=== PATIENT | male | born 1955 | race Caucasian/White ===

== ENCOUNTER 2016-12-08 17:09 | Emergency (ER) | payer OTHER ==
[~2016-12-08 17:09] MED LIST: ABIL5TAB PO; AZIT600T PO; COUM6TAB PO; DEPA500T2 PO; DOXY150C PO; PRIL40CA PO; STRA100C PO
[2016-12-08] MEDS ORDERED: MORPHINE 4 MG/ML 1ML SYRINGE As Ordered ONE (17:40)
[2016-12-08] MEDS ORDERED: ONDANSETRON 4MG/2ML VIAL (J2405) As Ordered ONE (17:40)
[2016-12-08] MEDS ORDERED: ADACEL/BOOSTRIX VACCINE (DIPHTH/PERTUSS/ACELL/TETANUS)0.5ML SYR (90715) As Ordered ONE (17:41)
[2016-12-08] MEDS ORDERED: ceFAZolin 1GM INJ (J0690) As Ordered ONE (17:48)
[2016-12-08 17:51] LABS: BASO % 0.3 % (0.0-1.0); EOS # 0.1 K/mm3 (0.0-0.50); LARGE UNSTAINED CELL # 0.1 K/mm3 (0.0-0.4); LYMPH # 1.9 K/mm3 (1.5-4.5); LYMPH % 20.6 % (24.0-44.0); MEAN CORPUSCULAR HEMOGLOBIN 31.4 pg (27.0-33.0); MEAN CORPUSCULAR HGB CONC 32.8 g/dl (32.0-36.5); MEAN CORPUSCULAR VOLUME 95.8 fl (80.0-96.0); MONO # 0.7 K/mm3 (0.0-0.8); NEUTROPHILS # 6.1 K/mm3 (1.8-7.7); PLATELET COUNT, AUTOMATED 242 k/mm3 (150-450); WHITE BLOOD COUNT 8.8 K/mm3 (4.0-10.0)
[2016-12-08 18:06] LABS: INR 1.67
[2016-12-08 18:14] LABS: ANION GAP 8 MEQ/L (8-16); BLOOD UREA NITROGEN 16 MG/DL (7-18); CALCIUM LEVEL 9.1 MG/DL (8.8-10.2); CARBON DIOXIDE LEVEL 29 MEQ/L (21-32); CHLORIDE LEVEL 106 MEQ/L (98-107); CREATININE FOR GFR 0.91 MG/DL (0.70-1.30); GLOMERULAR FILTRATION RATE > 60.0 (>49); GLUCOSE, FASTING 81 MG/DL (80-110); POTASSIUM SERUM 4.2 MEQ/L (3.5-5.1); SODIUM LEVEL 143 MEQ/L (136-145)
[2016-12-08] MEDS ORDERED: MORPHINE 2 MG/ML 1ML SYRINGE As Ordered ONE (18:31)
[2016-12-08] MEDS ORDERED: OXYCODONE/APAP 5MG/325MG(BULK) 1 TAB TAB As Ordered ONE (18:49)
--- NOTE | 2016-12-08 19:21 | EDDOCDS ---
Physician Documentation [facility] Name: Cipriano Rodrigez Age: 61 yrs Sex: Male : 1955 Arrival Date: 12/08/2016 Time: 17:09 Bed 10 Private MD: Other - Complete Info On Cds Disposition: 12/08/16 18:39 Discharged to Home/Self Care. 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 - Condition is Stable. - Prescriptions for Keflex 500 mg Oral Capsule - take 1 capsule by ORAL route every 8 hours for 10 days; 30 capsule. Percocet 5- 325 mg Oral Tablet - take 1 tablet by ORAL route every 6 hours As needed MDD: 4 tabs; 20 tablet. - Medication Reconciliation, Local Pharmacy Hours form. - Follow up: Orthopaedics, [facility]; When: Tomorrow. - Problem is new. - Symptoms are unchanged. - Notes: please call ortho office in morning. Dr. Chavez was involved in your care and arranged for you to be seen tomorrow. if any concerns arise call [phone] and ask for me tomorrow - Dr Kim. Return if worsening symptoms Historical: - Allergies: no known allergies; - Home Meds: 1. Coumadin friday 6 mg, friday 2 mg, friday 6 mg, friday 2mg, ?, friday 2mg, friday? Oral tab once daily (Last dose: 12/08/2016) 2. Depakote 500 mg Oral TbEC 3 tabs once daily 3. Omeprazole Oral 2 times per day 4. Iron CR Oral with meals 5. Synthroid Oral Unknown once daily - PMHx: Hypothyroidism; DVT; Seizures; TBI; - PSHx: Appendectomy; Tonsillectomy; - Social history: Smoking status: Patient uses tobacco products, current every day smoker. No barriers to communication noted, The patient speaks fluent Guinean, Speaks appropriately for age. - Family history: Not pertinent. - : The pt / caregiver states he / she is on anticoagulants: coumadin. Home medication list is obtained from the patient. - Exposure Risk Screening:: None identified. Vital Signs: 12/08 17:13 BP 143 / 85 (auto/); ead 17:14 Pulse 74 MON; Pulse Ox 99% ; ead 17:15 BP 143 / 85; Pulse 77; Resp 18; Temp 98.7(TE); Pulse Ox 99% on R/A; Weight 79.38 kg / kc3 175 lbs; Height 5 ft. 6 in. (167.64 cm); 18:12 BP 146 / 90 (auto/); ead 18:12 Pulse 74 MON; Resp 16; Pulse Ox 95% on R/A; ead 18:57 BP 138 / 88; Pulse 72 MON; Resp 16; Temp 98.7; Pulse Ox 95% on R/A; Pain 5/10; ead 17:15 Body Mass Index 28.25 (79.38 kg, 167.64 cm) kc3 MDM: 17:29 Tetanus- Diptheria-Acellular Pertussis 0.5 ml IM once; Routine booster 10-64yrs, >64 ml with child contact [employer] ordered. 17:29 IV Saline Lock ordered. ml 17:30 Ondansetron 4 mg IVP once ordered. ml 17:30 morphine 4 mg IVP once ordered. ml 17:31 CBC with Diff Ordered. EDMS 17:31 MED Profile Ordered. EDMS 17:31 PT/INR Ordered. EDMS 17:31 PTT Ordered. EDMS 17:31 Hand, Complete Ordered. EDMS 17:38 ceFAZolin 1 grams IVPB once over 30 mins; dilute in 50mL of NS or D5W ordered. ml 18:31 morphine 2 mg IVP once ordered. ml 18:31 oxyCODONE-acetaminophen 4 pack 5 mg-325 mg 1 packets PO once; Dispense with pt, take as ml per instruction on package ordered. 18:32 CBC with Diff Reviewed. ml 18:32 PT/INR Reviewed. ml 18:32 MED Profile Reviewed. ml 18:32 PTT Reviewed. ml 18:40 Misc. Nursing Order ordered. ml 19:16 Financial registration complete. 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 Lot #: [id number]. } Route: IM; Site: left deltoid; 18:02 Drug: Ondansetron 4 mg [ondansetron HCl 2 mg/mL intravenous solution (2 mL)] Route: kc3 IVP; Site: left antecubital; 18:02 Drug: morphine 4 mg [morphine 4 mg/mL intravenous cartridge (1 mL)] Route: IVP; Site: kc3 left antecubital; 18:35 Drug: morphine 2 mg [morphine 2 mg/mL intravenous cartridge (1 mL)] Route: IVP; Site: ead left antecubital; 18:59 Follow up: Response: Confirmed pt not driving.; No Adverse Reaction; Pain is decreased ead 18:59 Drug: oxyCODONE-acetaminophen 4 pack 1 packets [oxycodone-acetaminophen 5 mg-325 mg ead tablet (1 tabs)] {Co-Signature: kc3 (Ernestina Hernandez RN).} Route: PO; Signatures: Dispatcher [employer] Bola Dietrich MD MD ml Olin, Zoeann zo Dunaway, EmilyRN RN Gina Cummings RN RN tm5 Ernestina Hernandez RN kc3 Ernestina Hernandez RN kc3 MTDD
--- NOTE | 2016-12-08 19:21 | EDDOCDS ---
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 pt on Coumadin. bleeding controlled per pt on EMS arrival. pt denies pain. Adult Sepsis Screening: The patient does not have new or worsening altered mentation. Patient's respiratory rate is less than 22. Systolic blood pressure is greater than 100. Patient has a qSOFA score of 0- Negative Sepsis Screen. Suicide/Homicide risk assessment- the patient denies having any suicidal and/or homicidal ideations and does not present with any other emotional, behavioral or mental health complaints. Status: Patient is not a customer service analyst or dependent. Transition of care: patient was not received from another setting of care. 17:11 Acuity: MACARIO Level 3 ead 17:11 Method Of Arrival: Ambulance ead Triage Assessment: 17:19 General: Appears in no apparent distress, comfortable, Behavior is appropriate for age, ead cooperative. HIV screening NA for this visit Offered previously. Neurological: No deficits noted. Derm: Skin is pink, warm & dry. pt has dressing in place to right hand. Musculoskeletal: Reports pain in right hand. Historical: - Allergies: no known allergies; - Home Meds: 1. Coumadin friday 6 mg, friday 2 mg, friday 6 mg, friday 2mg, ?, friday 2mg, friday? Oral tab once daily (Last dose: 12/08/2016) 2. Depakote 500 mg Oral TbEC 3 tabs once daily 3. Omeprazole Oral 2 times per day 4. Iron CR Oral with meals 5. Synthroid Oral Unknown once daily - PMHx: Hypothyroidism; DVT; Seizures; TBI; - PSHx: Appendectomy; Tonsillectomy; - Social history: Smoking status: Patient uses tobacco products, current every day smoker. No barriers to communication noted, The patient speaks fluent Sinhala, Speaks appropriately for age. - Family history: Not pertinent. - : The pt / caregiver states he / she is on anticoagulants: coumadin. Home medication list is obtained from the patient. - Exposure Risk Screening:: None identified. Screenin:21 Screening information is obtained from the patient. Fall risk: No risks identified. ead Assistance ADL's: requires no assistance with activities of daily living. Abuse/DV Screen: The patient / caregiver reports he/she is: not in a situation that causes fear, pain or injury. Nutritional screening: No deficits noted. Advance Directives: Currently, there is no health care proxy. There is no active DNR order. There is no living will. There is no Power of Causticiser. home support is adequate. Assessment: 18:11 General: Appears in no apparent distress, Behavior is appropriate for age, cooperative. ead Neurological: No deficits noted. Respiratory: Airway is patent Respiratory effort is even, unlabored. Derm: fingertip amputation to right 3rd and 4th finger. bleeding controlled. Musculoskeletal: No deformity noted Reports pain in right hand. 19:01 General: Appears in no apparent distress, Behavior is cooperative. Neurological: Level ead of Consciousness is awake, alert, obeys commands, Oriented to person, place, time. Respiratory: No deficits noted. Derm: Skin is pink, warm & dry. dressing in place per Dr. Kim. Vital Signs: 17:13 BP 143 / 85 (auto/); ead 17:14 Pulse 74 MON; Pulse Ox 99% ; ead 17:15 BP 143 / 85; Pulse 77; Resp 18; Temp 98.7(TE); Pulse Ox 99% on R/A; Weight 79.38 kg; kc3 Height 5 ft. 6 in. (167.64 cm); 18:12 BP 146 / 90 (auto/); ead 18:12 Pulse 74 MON; Resp 16; Pulse Ox 95% on R/A; ead 18:57 BP 138 / 88; Pulse 72 MON; Resp 16; Temp 98.7; Pulse Ox 95% on R/A; Pain 5/10; ead 17:15 Body Mass Index 28.25 (79.38 kg, 167.64 cm) kc3 Vitals: 17:09 Log In Time N/A - ambulance arrival. ead ED Course: 17:10 Patient visited by Fatuma Martinez. mt4 17:10 Erin ThomasRN is Primary Nurse. mt4 17:10 Other - Complete Info On Cds is Private Physician. mt4 17:10 Patient moved to Waiting mt4 17:10 Patient moved to 10 mt4 17:14 Triage Initiated ead 17:21 Bola Nagel MD is Attending Physician. ml 17:21 Patient visited by Bola Nagel MD. ml 17:21 The patient / caregiver is instructed regarding the plan of care and ED course. ead 17:40 Inserted saline lock: 20 gauge in left antecubital area and blood collected. The ead patient tolerated the procedure well. 17:43 Patient visited by Erin Thomas RN. ead 17:43 PTT Sent. ead 17:43 PT/INR Sent. ead 17:43 MED Profile Sent. ead 17:43 CBC with Diff Sent. ead 17:56 Patient visited by Erin Thomas RN. ead 18:32 Patient visited by Erin Thomas RN. ead 18[facility] ml 18:59 Discontinued lock intact, bleeding controlled, pressure dressing applied, No ead redness/swelling at site. No procedures done that require assistance. 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 Lot #: [id number]. } Route: IM; Site: left deltoid; 18:02 Drug: Ondansetron 4 mg [ondansetron HCl 2 mg/mL intravenous solution (2 mL)] Route: kc3 IVP; Site: left antecubital; 18:02 Drug: morphine 4 mg [morphine 4 mg/mL intravenous cartridge (1 mL)] Route: IVP; Site: kc3 left antecubital; 18:35 Drug: morphine 2 mg [morphine 2 mg/mL intravenous cartridge (1 mL)] Route: IVP; Site: ead left antecubital; 18:59 Follow up: Response: Confirmed pt not driving.; No Adverse Reaction; Pain is decreased ead 18:59 Drug: oxyCODONE-acetaminophen 4 pack 1 packets [oxycodone-acetaminophen 5 mg-325 mg ead tablet (1 tabs)] {Co-Signature: kc3 (Ernestina Hernandez RN).} Route: PO; Order Results: Lab Order: CBC with Diff; SPEC'M 12/08/16 17:41 Test: WHITE BLOOD COUNT; Value: 8.8; Range: 4.0-10.0; Units: K/mm3; Status: F Test: RED BLOOD COUNT; Value: 5.01; Range: 4.30-6.10; Units: M/mm3; Status: F Test: HEMOGLOBIN; Value: 15.7; Range: 14.0-18.0; Units: g/dl; Status: F Test: HEMATOCRIT; Value: 48.0; Range: 42.0-52.0; Units: %; Status: F Test: MEAN CORPUSCULAR VOLUME; Value: 95.8; Range: 80.0-96.0; Units: fl; Status: F Test: MEAN CORPUSCULAR HEMOGLOBIN; Value: 31.4; Range: 27.0-33.0; Units: pg; Status: F Test: MEAN CORPUSCULAR HGB CONC; Value: 32.8; Range: 32.0-36.5; Units: g/dl; Status: F Test: RED CELL DISTRIBUTION WIDTH; Value: 16.0; Range: 11.5-14.5; Abnormal: Above high normal; Units: %; Status: F Test: PLATELET COUNT, AUTOMATED; Value: 242; Range: 150-450; Units: k/mm3; Status: F Test: NEUTROPHILS %; Value: 69.0; Range: 36.0-66.0; Abnormal: Above high normal; Units: %; Status: F Test: LYMPH %; Value: 20.6; Range: 24.0-44.0; Abnormal: Below low normal; Units: %; Status: F Test: MONO %; Value: 8.0; Range: 0.0-5.0; Abnormal: Above high normal; Units: %; Status: F Test: EOS %; Value: 1.0; Range: 0.0-3.0; Units: %; Status: F Test: BASO %; Value: 0.3; Range: 0.0-1.0; Units: %; Status: F Test: LARGE UNSTAINED CELL %; Value: 1.0; Range: 0.0-4.0; Units: %; Status: F Test: NEUTROPHILS #; Value: 6.1; Range: 1.8-7.7; Units: K/mm3; Status: F Test: LYMPH #; Value: 1.9; Range: 1.5-4.5; Units: K/mm3; Status: F Test: MONO #; Value: 0.7; Range: 0.0-0.8; Units: K/mm3; Status: F Test: EOS #; Value: 0.1; Range: 0.0-0.50; Units: K/mm3; Status: F Test: BASO #; Value: 0.0; Range: 0.0-0.2; Units: K/mm3; Status: F Test: LARGE UNSTAINED CELL #; Value: 0.1; Range: 0.0-0.4; Units: K/mm3; Status: F Lab Order: [facility]; [facility] 12/08/16 17:41 Test: GLUCOSE, FASTING; Value: 81; Range: 80-110; Units: MG/DL; Status: F Test: BLOOD UREA NITROGEN; Value: 16; Range: 7-18; Units: MG/DL; Status: F Test: CREATININE FOR GFR; Value: 0.91; Range: 0.70-1.30; Units: MG/DL; Status: F Test: GLOMERULAR FILTRATION RATE; Value: > 60.0; Range: >49; Status: F Test: SODIUM LEVEL; Value: 143; Range: 136-145; Units: MEQ/L; Status: F Test: POTASSIUM SERUM; Value: 4.2; Range: 3.5-5.1; Units: MEQ/L; Status: F Test: CHLORIDE LEVEL; Value: 106; Range: 98-107; Units: MEQ/L; Status: F Test: CARBON DIOXIDE LEVEL; Value: 29; Range: 21-32; Units: MEQ/L; Status: F Test: ANION GAP; Value: 8; Range: 8-16; Units: MEQ/L; Status: F Test: CALCIUM LEVEL; Value: 9.1; Range: 8.8-10.2; Units: MG/DL; Status: F Test Note: ; Units are mL/min/1.73 m2 Chronic Kidney Disease Staging per NKF: Stage I & II GFR >=60 Normal to Mildly Decreased Stage III GFR 30-59 Moderately Decreased Stage IV GFR 15-29 Severely Decreased Stage V GFR <15 Very Little GFR Left ESRD GFR <15 on COLOR BLENDER Lab Order: PT/INR; SPEC'M 12/08/16 17:41 Test: PROTHROMBIN TIME; Value: 19.8; Range: 12.3-14.5; Abnormal: Above high normal; Units: SECONDS; Status: F Test: INR; Value: 1.67; Status: F Test Note: ; THERAPUTIC HUMAN INR VALUES INDICATIONS NORMAL RANGES PROPHYLAXIS/TREATMENT OF: VENOUS THROMBOSIS 2.0-3.0 PULMONARY EMBOLISM 2.0-3.0 PREVENTION OF SYSTEMIC EMBOLISM FROM: TISSUE HEART VALVES 2.0-3.0 ACUTE MYOCARDIAL INFARCTION 2.0-3.0 VALVULAR HEART DISEASE 2.0-3.0 ATRIAL FIBRILLATION 2.0-3.0 MECHANICAL VALVES(HIGH RISK) 2.5-3.5 RECURRENT MYOCARDIAL INFARCTION 2.5-3.5 Lab Order: PTT; SPEC'12/08/16 17:41 Test: PARTIAL THROMBOPLASTIN TIME; Value: 33.7; Range: 26.6-37.1; Units: SECONDS; Status: F Outcome: 18:39 Discharge ordered by Provider. ml 19:00 Discharge Assessment: Patient awake and alert. obeys commands, Oriented to person, ead place and time. patient administered narcotics - yes. Pt provided with safe discharge. The following High Risk Discharge criteria are identified: None. Discharged to home ambulatory, with friend. Condition: improved. Discharge instructions given to patient, Instructed on discharge instructions, follow up and referral plans. medication usage, no driving heavy equipment, wound care, no drinking with medication, Demonstrated understanding of instructions, medications, Pt was receptive of discharge instructions/ teaching. Prescriptions given X 2. No special radiology studies were completed. Property sent home with patient. 19:21 Patient left the ED. tm5 Signatures: Bola Nagel MD MD ml Thomas, Melissa mt4 Erin ThomasRN Ernestina Tovar RN RN kc3 Gina Nicholson RN RN tm5 Ernestina carpio3 Corrections: (The following items were deleted from the chart) 18:14 18:00 General: shital isaacs MTDD
--- NOTE | 2016-12-09 07:42 | REP ---
RIGHT HAND SERIES, COMPLETE: 12/08/2016. Clinical history: Trauma, stuck hand in snowblower. Attention third and fourth digits. Four views are provided. There are open fracture amputations of the distal most aspect of the distal jacquie of the third and fourth digits with laceration avulsion of the soft tissues as well. These should be considered open fractures likely bone is exposed to your direct visualization. I do not see other fractures of the phalanges. The IP joints show narrowing consistent with degenerative change as does the MCP joint of each digit. First CMC joint degenerative changes are seen. No metacarpal carpal fracture or distal radial/ulnar fracture. Impression: 1. Evidence for acute open fracture avulsions of the distal jacquie and soft tissues of the distal phalanges third and fourth digits. Diffuse degenerative changes throughout the joints of the hand and wrist. No other fractures. These should be considered open fractures. Signed by Robb Foss MD 12/09/2016 09:19 A
--- NOTE | 2016-12-10 20:22 | EDDOCDS ---
Physician Documentation [facility] Name: Cipriano Rodrigez Age: 61 yrs Sex: Male : 1955 Arrival Date: 12/08/2016 Time: 17:09 Bed 10 Private MD: Other - Complete Info On Cds Disposition: 12/08/16 18:39 Discharged to Home/Self Care. 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 - Condition is Stable. - Prescriptions for Keflex 500 mg Oral Capsule - take 1 capsule by ORAL route every 8 hours for 10 days; 30 capsule. Percocet 5- 325 mg Oral Tablet - take 1 tablet by ORAL route every 6 hours As needed MDD: 4 tabs; 20 tablet. - Medication Reconciliation, Local Pharmacy Hours form. - Follow up: Orthopaedics, [facility]; When: Tomorrow. - Problem is new. - Symptoms are unchanged. - Notes: please call ortho office in morning. Dr. Chavez was involved in your care and arranged for you to be seen tomorrow. if any concerns arise call [phone] and ask for me tomorrow - Dr Kim. Return if worsening symptoms Historical: - Allergies: no known allergies; - Home Meds: 1. Coumadin friday 6 mg, friday 2 mg, friday 6 mg, friday 2mg, ?, friday 2mg, friday? Oral tab once daily (Last dose: 12/08/2016) 2. Depakote 500 mg Oral TbEC 3 tabs once daily 3. Omeprazole Oral 2 times per day 4. Iron CR Oral with meals 5. Synthroid Oral Unknown once daily - PMHx: Hypothyroidism; DVT; Seizures; TBI; - PSHx: Appendectomy; Tonsillectomy; - Social history: Smoking status: Patient uses tobacco products, current every day smoker. No barriers to communication noted, The patient speaks fluent Filipino, Speaks appropriately for age. - Family history: Not pertinent. - : The pt / caregiver states he / she is on anticoagulants: coumadin. Home medication list is obtained from the patient. - Exposure Risk Screening:: None identified. Vital Signs: 12/08 17:13 BP 143 / 85 (auto/); ead 17:14 Pulse 74 MON; Pulse Ox 99% ; ead 17:15 BP 143 / 85; Pulse 77; Resp 18; Temp 98.7(TE); Pulse Ox 99% on R/A; Weight 79.38 kg / kc3 175 lbs; Height 5 ft. 6 in. (167.64 cm); 18:12 BP 146 / 90 (auto/); ead 18:12 Pulse 74 MON; Resp 16; Pulse Ox 95% on R/A; ead 18:57 BP 138 / 88; Pulse 72 MON; Resp 16; Temp 98.7; Pulse Ox 95% on R/A; Pain 5/10; ead 17:15 Body Mass Index 28.25 (79.38 kg, 167.64 cm) kc3 MDM: 17:29 Tetanus- Diptheria-Acellular Pertussis 0.5 ml IM once; Routine booster 10-64yrs, >64 ml with child contact [employer] ordered. 17:29 IV Saline Lock ordered. ml 17:30 Ondansetron 4 mg IVP once ordered. ml 17:30 morphine 4 mg IVP once ordered. ml 17:31 CBC with Diff Ordered. EDMS 17:31 MED Profile Ordered. EDMS 17:31 PT/INR Ordered. EDMS 17:31 PTT Ordered. EDMS 17:31 Hand, Complete Ordered. EDMS 17:38 ceFAZolin 1 grams IVPB once over 30 mins; dilute in 50mL of NS or D5W ordered. ml 18:31 morphine 2 mg IVP once ordered. ml 18:31 oxyCODONE-acetaminophen 4 pack 5 mg-325 mg 1 packets PO once; Dispense with pt, take as ml per instruction on package ordered. 18:32 CBC with Diff Reviewed. ml 18:32 PT/INR Reviewed. ml 18:32 MED Profile Reviewed. ml 18:32 PTT Reviewed. ml 18:40 Misc. Nursing Order ordered. ml 19:16 Financial registration complete. zo 19:49 [facility] Payment Agreement was scanned into [employer] and attached to record. zo 12/09 11:02 T-Sheet-- Draft Copy was scanned into [employer] and attached to record. 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 Lot #: [id number]. } Route: IM; Site: left deltoid; 18:02 Drug: Ondansetron 4 mg [ondansetron HCl 2 mg/mL intravenous solution (2 mL)] Route: kc3 IVP; Site: left antecubital; 18:02 Drug: morphine 4 mg [morphine 4 mg/mL intravenous cartridge (1 mL)] Route: IVP; Site: kc3 left antecubital; 18:35 Drug: morphine 2 mg [morphine 2 mg/mL intravenous cartridge (1 mL)] Route: IVP; Site: ead left antecubital; 18:59 Follow up: Response: Confirmed pt not driving.; No Adverse Reaction; Pain is decreased ead 18:59 Drug: oxyCODONE-acetaminophen 4 pack 1 packets [oxycodone-acetaminophen 5 mg-325 mg ead tablet (1 tabs)] {Co-Signature: kc3 (Ernestina Hernandez RN).} Route: PO; Signatures: Dispatcher [employer] Bola Dietrich MD MD Skylar Meade, Reg Reg Carlee Marley Emily, RN RN Gina Cummings RN RN [id number] Ernestina Hernandez RN kc3 Ernestina Hernandez RN kc3 The chart was reviewed and I authenticate all verbal orders and agree with the evaluation and treatment provided.Attachments: 19:49 [facility] Payment Agreement zo 12/09 11:02 T-Sheet-- Draft Copy gb Chart Complete MTDD
--- NOTE | 2016-12-10 20:22 | EDDOCDS ---
Physician Documentation [facility] Name: Cipriano Rodrigez Age: 61 yrs Sex: Male : 1955 Arrival Date: 12/08/2016 Time: 17:09 Bed 10 Private MD: Other - Complete Info On Cds Disposition: 12/08/16 18:39 Discharged to Home/Self Care. 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 - Condition is Stable. - Prescriptions for Keflex 500 mg Oral Capsule - take 1 capsule by ORAL route every 8 hours for 10 days; 30 capsule. Percocet 5- 325 mg Oral Tablet - take 1 tablet by ORAL route every 6 hours As needed MDD: 4 tabs; 20 tablet. - Medication Reconciliation, Local Pharmacy Hours form. - Follow up: Orthopaedics, [facility]; When: Tomorrow. - Problem is new. - Symptoms are unchanged. - Notes: please call ortho office in morning. Dr. Chavez was involved in your care and arranged for you to be seen tomorrow. if any concerns arise call [phone] and ask for me tomorrow - Dr Kim. Return if worsening symptoms Historical: - Allergies: no known allergies; - Home Meds: 1. Coumadin friday 6 mg, friday 2 mg, friday 6 mg, friday 2mg, ?, friday 2mg, friday? Oral tab once daily (Last dose: 12/08/2016) 2. Depakote 500 mg Oral TbEC 3 tabs once daily 3. Omeprazole Oral 2 times per day 4. Iron CR Oral with meals 5. Synthroid Oral Unknown once daily - PMHx: Hypothyroidism; DVT; Seizures; TBI; - PSHx: Appendectomy; Tonsillectomy; - Social history: Smoking status: Patient uses tobacco products, current every day smoker. No barriers to communication noted, The patient speaks fluent Afghan, Speaks appropriately for age. - Family history: Not pertinent. - : The pt / caregiver states he / she is on anticoagulants: coumadin. Home medication list is obtained from the patient. - Exposure Risk Screening:: None identified. Vital Signs: 12/08 17:13 BP 143 / 85 (auto/); ead 17:14 Pulse 74 MON; Pulse Ox 99% ; ead 17:15 BP 143 / 85; Pulse 77; Resp 18; Temp 98.7(TE); Pulse Ox 99% on R/A; Weight 79.38 kg / kc3 175 lbs; Height 5 ft. 6 in. (167.64 cm); 18:12 BP 146 / 90 (auto/); ead 18:12 Pulse 74 MON; Resp 16; Pulse Ox 95% on R/A; ead 18:57 BP 138 / 88; Pulse 72 MON; Resp 16; Temp 98.7; Pulse Ox 95% on R/A; Pain 5/10; ead 17:15 Body Mass Index 28.25 (79.38 kg, 167.64 cm) kc3 MDM: 17:29 Tetanus- Diptheria-Acellular Pertussis 0.5 ml IM once; Routine booster 10-64yrs, >64 ml with child contact [place] [employer] ordered. 17:29 IV Saline Lock ordered. ml 17:30 Ondansetron 4 mg IVP once ordered. ml 17:30 morphine 4 mg IVP once ordered. ml 17:31 CBC with Diff Ordered. EDMS 17:31 MED Profile Ordered. EDMS 17:31 PT/INR Ordered. EDMS 17:31 PTT Ordered. EDMS 17:31 Hand, Complete Ordered. EDMS 17:38 ceFAZolin 1 grams IVPB once over 30 mins; dilute in 50mL of NS or D5W ordered. ml 18:31 morphine 2 mg IVP once ordered. ml 18:31 oxyCODONE-acetaminophen 4 pack 5 mg-325 mg 1 packets PO once; Dispense with pt, take as ml per instruction on package ordered. 18:32 CBC with Diff Reviewed. ml 18:32 PT/INR Reviewed. ml 18:32 MED Profile Reviewed. ml 18:32 PTT Reviewed. ml 18:40 Misc. Nursing Order ordered. ml 19:16 Financial registration complete. zo 19:49 [facility] Payment Agreement was scanned into [employer] and attached to record. zo 12/09 11:02 T-Sheet-- Draft Copy was scanned into [employer] and attached to record. gb Administered Medications: 12/08 17:56 Drug: ceFAZolin 1 grams [cefazolin 1 gram solution for injection] Route: IVPB; Infused ead Over: 30 mins; Site: left antecubital; 18:02 Drug: Tetanus- Diptheria-Acellular Pertussis 0.5 ml [diphth,pertussis(acel),tetanus 2.5 kc3 Lf unit-8 mcg-5 Lf/0.5mL IM syringe (0.5 mL)] {Wound Specialist: ORVIBO. 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 Lot #: [id number]. } Route: IM; Site: left deltoid; 18:02 Drug: Ondansetron 4 mg [ondansetron HCl 2 mg/mL intravenous solution (2 mL)] Route: kc3 IVP; Site: left antecubital; 18:02 Drug: morphine 4 mg [morphine 4 mg/mL intravenous cartridge (1 mL)] Route: IVP; Site: kc3 left antecubital; 18:35 Drug: morphine 2 mg [morphine 2 mg/mL intravenous cartridge (1 mL)] Route: IVP; Site: ead left antecubital; 18:59 Follow up: Response: Confirmed pt not driving.; No Adverse Reaction; Pain is decreased ead 18:59 Drug: oxyCODONE-acetaminophen 4 pack 1 packets [oxycodone-acetaminophen 5 mg-325 mg ead tablet (1 tabs)] {Co-Signature: kc3 (Ernestina Hernandez RN).} Route: PO; Signatures: Dispatcher [employer] Bola Dietrich MD MD Skylar Meade, Reg Reg Carlee Marley Emily, RN RN Gina Cummings RN RN [id number] Ernestina Hernandez RN kc3 Ernestina Hernandez RN kc3 The chart was reviewed and I authenticate all verbal orders and agree with the evaluation and treatment provided.Attachments: 19:49 [facility] Payment Agreement zo 12/09 11:02 T-Sheet-- Draft Copy gb Chart Complete MTDD
--- NOTE | 2016-12-10 20:22 | EDDOCDS ---
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 pt on Coumadin. bleeding controlled per pt on EMS arrival. pt denies pain. Adult Sepsis Screening: The patient does not have new or worsening altered mentation. Patient's respiratory rate is less than 22. Systolic blood pressure is greater than 100. Patient has a qSOFA score of 0- Negative Sepsis Screen. Suicide/Homicide risk assessment- the patient denies having any suicidal and/or homicidal ideations and does not present with any other emotional, behavioral or mental health complaints. Status: Patient is not a services tech or dependent. Transition of care: patient was not received from another setting of care. 17:11 Acuity: MACARIO Level 3 ead 17:11 Method Of Arrival: Ambulance ead Triage Assessment: 17:19 General: Appears in no apparent distress, comfortable, Behavior is appropriate for age, ead cooperative. HIV screening NA for this visit Offered previously. Neurological: No deficits noted. Derm: Skin is pink, warm & dry. pt has dressing in place to right hand. Musculoskeletal: Reports pain in right hand. Historical: - Allergies: no known allergies; - Home Meds: 1. Coumadin friday 6 mg, friday 2 mg, friday 6 mg, friday 2mg, ?, friday 2mg, friday? Oral tab once daily (Last dose: 12/08/2016) 2. Depakote 500 mg Oral TbEC 3 tabs once daily 3. Omeprazole Oral 2 times per day 4. Iron CR Oral with meals 5. Synthroid Oral Unknown once daily - PMHx: Hypothyroidism; DVT; Seizures; TBI; - PSHx: Appendectomy; Tonsillectomy; - Social history: Smoking status: Patient uses tobacco products, current every day smoker. No barriers to communication noted, The patient speaks fluent Turkish, Speaks appropriately for age. - Family history: Not pertinent. - : The pt / caregiver states he / she is on anticoagulants: coumadin. Home medication list is obtained from the patient. - Exposure Risk Screening:: None identified. Screenin:21 Screening information is obtained from the patient. Fall risk: No risks identified. ead Assistance ADL's: requires no assistance with activities of daily living. Abuse/DV Screen: The patient / caregiver reports he/she is: not in a situation that causes fear, pain or injury. Nutritional screening: No deficits noted. Advance Directives: Currently, there is no health care proxy. There is no active DNR order. There is no living will. There is no Power of Paint Tinter. home support is adequate. Assessment: 18:11 General: Appears in no apparent distress, Behavior is appropriate for age, cooperative. ead Neurological: No deficits noted. Respiratory: Airway is patent Respiratory effort is even, unlabored. Derm: fingertip amputation to right 3rd and 4th finger. bleeding controlled. Musculoskeletal: No deformity noted Reports pain in right hand. 19:01 General: Appears in no apparent distress, Behavior is cooperative. Neurological: Level ead of Consciousness is awake, alert, obeys commands, Oriented to person, place, time. Respiratory: No deficits noted. Derm: Skin is pink, warm & dry. dressing in place per Dr. Kim. Vital Signs: 17:13 BP 143 / 85 (auto/); ead 17:14 Pulse 74 MON; Pulse Ox 99% ; ead 17:15 BP 143 / 85; Pulse 77; Resp 18; Temp 98.7(TE); Pulse Ox 99% on R/A; Weight 79.38 kg; kc3 Height 5 ft. 6 in. (167.64 cm); 18:12 BP 146 / 90 (auto/); ead 18:12 Pulse 74 MON; Resp 16; Pulse Ox 95% on R/A; ead 18:57 BP 138 / 88; Pulse 72 MON; Resp 16; Temp 98.7; Pulse Ox 95% on R/A; Pain 5/10; ead 17:15 Body Mass Index 28.25 (79.38 kg, 167.64 cm) kc3 Vitals: 17:09 Log In Time N/A - ambulance arrival. ead ED Course: 17:10 Patient visited by Fatuma Martinez. mt4 17:10 Erin ThomasRN is Primary Nurse. mt4 17:10 Other - Complete Info On Cds is Private Physician. mt4 17:10 Patient moved to Waiting mt4 17:10 Patient moved to 10 mt4 17:14 Triage Initiated ead 17:21 Bola Nagel MD is Attending Physician. ml 17:21 Patient visited by Bola Nagel MD. ml 17:21 The patient / caregiver is instructed regarding the plan of care and ED course. ead 17:40 Inserted saline lock: 20 gauge in left antecubital area and blood collected. The ead patient tolerated the procedure well. 17:43 Patient visited by Erin Thomas RN. ead 17:43 PTT Sent. ead 17:43 PT/INR Sent. ead 17:43 MED Profile Sent. ead 17:43 CBC with Diff Sent. ead 17:56 Patient visited by Erin Thomas RN. ead 18:32 Patient visited by Erin Thomas,LUCITA. ead 18[facility] ml 18:59 Discontinued lock intact, bleeding controlled, pressure dressing applied, No ead redness/swelling at site. No procedures done that require assistance. 19:49 [facility] [place] Agreement was scanned into [employer] and attached to record. zo 12/09 07:46 Hand, Complete Returned. EDMS 11:02 T-Sheet-- Draft Copy was scanned into [employer] and attached to record. gb Administered Medications: 12/08 17:56 Drug: ceFAZolin 1 grams [cefazolin 1 gram solution for injection] Route: IVPB; Infused ead Over: 30 mins; Site: left antecubital; 18:02 Drug: Tetanus- Diptheria-Acellular Pertussis 0.5 ml [diphth,pertussis(acel),tetanus 2.5 kc3 Lf unit-8 mcg-5 Lf/0.5mL IM syringe (0.5 mL)] {Color Maker Dyer: Exec. 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 Lot #: [id number]. } Route: IM; Site: left deltoid; 18:02 Drug: Ondansetron 4 mg [ondansetron HCl 2 mg/mL intravenous solution (2 mL)] Route: kc3 IVP; Site: left antecubital; 18:02 Drug: morphine 4 mg [morphine 4 mg/mL intravenous cartridge (1 mL)] Route: IVP; Site: kc3 left antecubital; 18:35 Drug: morphine 2 mg [morphine 2 mg/mL intravenous cartridge (1 mL)] Route: IVP; Site: ead left antecubital; 18:59 Follow up: Response: Confirmed pt not driving.; No Adverse Reaction; Pain is decreased ead 18:59 Drug: oxyCODONE-acetaminophen 4 pack 1 packets [oxycodone-acetaminophen 5 mg-325 mg ead tablet (1 tabs)] {Co-Signature: kc3 (Ernestina Hernandez RN).} Route: PO; Order Results: Lab Order: CBC with Diff; SPEC'M 12/08/16 17:41 Test: WHITE BLOOD COUNT; Value: 8.8; Range: 4.0-10.0; Units: K/mm3; Status: F Test: RED BLOOD COUNT; Value: 5.01; Range: 4.30-6.10; Units: M/mm3; Status: F Test: HEMOGLOBIN; Value: 15.7; Range: 14.0-18.0; Units: g/dl; Status: F Test: HEMATOCRIT; Value: 48.0; Range: 42.0-52.0; Units: %; Status: F Test: MEAN CORPUSCULAR VOLUME; Value: 95.8; Range: 80.0-96.0; Units: fl; Status: F Test: MEAN CORPUSCULAR HEMOGLOBIN; Value: 31.4; Range: 27.0-33.0; Units: pg; Status: F Test: MEAN CORPUSCULAR HGB CONC; Value: 32.8; Range: 32.0-36.5; Units: g/dl; Status: F Test: RED CELL DISTRIBUTION WIDTH; Value: 16.0; Range: 11.5-14.5; Abnormal: Above high normal; Units: %; Status: F Test: PLATELET COUNT, AUTOMATED; Value: 242; Range: 150-450; Units: k/mm3; Status: F Test: NEUTROPHILS %; Value: 69.0; Range: 36.0-66.0; Abnormal: Above high normal; Units: %; Status: F Test: LYMPH %; Value: 20.6; Range: 24.0-44.0; Abnormal: Below low normal; Units: %; Status: F Test: MONO %; Value: 8.0; Range: 0.0-5.0; Abnormal: Above high normal; Units: %; Status: F Test: EOS %; Value: 1.0; Range: 0.0-3.0; Units: %; Status: F Test: BASO %; Value: 0.3; Range: 0.0-1.0; Units: %; Status: F Test: LARGE UNSTAINED CELL %; Value: 1.0; Range: 0.0-4.0; Units: %; Status: F Test: NEUTROPHILS #; Value: 6.1; Range: 1.8-7.7; Units: K/mm3; Status: F Test: LYMPH #; Value: 1.9; Range: 1.5-4.5; Units: K/mm3; Status: F Test: MONO #; Value: 0.7; Range: 0.0-0.8; Units: K/mm3; Status: F Test: EOS #; Value: 0.1; Range: 0.0-0.50; Units: K/mm3; Status: F Test: BASO #; Value: 0.0; Range: 0.0-0.2; Units: K/mm3; Status: F Test: LARGE UNSTAINED CELL #; Value: 0.1; Range: 0.0-0.4; Units: K/mm3; Status: F Lab Order: MED Profile; [facility]' 12/08/16 17:41 Test: GLUCOSE, FASTING; Value: 81; Range: 80-110; Units: MG/DL; Status: F Test: BLOOD UREA NITROGEN; Value: 16; Range: 7-18; Units: MG/DL; Status: F Test: CREATININE FOR GFR; Value: 0.91; Range: 0.70-1.30; Units: MG/DL; Status: F Test: GLOMERULAR FILTRATION RATE; Value: > 60.0; Range: >49; Status: F Test: SODIUM LEVEL; Value: 143; Range: 136-145; Units: MEQ/L; Status: F Test: POTASSIUM SERUM; Value: 4.2; Range: 3.5-5.1; Units: MEQ/L; Status: F Test: CHLORIDE LEVEL; Value: 106; Range: 98-107; Units: MEQ/L; Status: F Test: CARBON DIOXIDE LEVEL; Value: 29; Range: 21-32; Units: MEQ/L; Status: F Test: ANION GAP; Value: 8; Range: 8-16; Units: MEQ/L; Status: F Test: CALCIUM LEVEL; Value: 9.1; Range: 8.8-10.2; Units: MG/DL; Status: F Test Note: ; Units are mL/min/1.73 m2 Chronic Kidney Disease Staging per NKF: Stage I & II GFR >=60 Normal to Mildly Decreased Stage III GFR 30-59 Moderately Decreased Stage IV GFR 15-29 Severely Decreased Stage V GFR <15 Very Little GFR Left ESRD GFR <15 on PARTNER [employer] MANAGER Lab Order: PT/INR; SPEC'M 12/08/16 17:41 Test: PROTHROMBIN TIME; Value: 19.8; Range: 12.3-14.5; Abnormal: Above high normal; Units: SECONDS; Status: F Test: INR; Value: 1.67; Status: F Test Note: ; THERAPUTIC HUMAN INR VALUES INDICATIONS NORMAL RANGES PROPHYLAXIS/TREATMENT OF: VENOUS THROMBOSIS 2.0-3.0 PULMONARY EMBOLISM 2.0-3.0 PREVENTION OF SYSTEMIC EMBOLISM FROM: TISSUE HEART VALVES 2.0-3.0 ACUTE MYOCARDIAL INFARCTION 2.0-3.0 VALVULAR HEART DISEASE 2.0-3.0 ATRIAL FIBRILLATION 2.0-3.0 MECHANICAL VALVES(HIGH RISK) 2.5-3.5 RECURRENT MYOCARDIAL INFARCTION 2.5-3.5 Lab Order: PTT; SPEC'M 12/08/16 17:41 Test: PARTIAL THROMBOPLASTIN TIME; Value: 33.7; Range: 26.6-37.1; Units: SECONDS; Status: F Radiology Order: Hand, Complete Test: Hand, Complete REASON FOR EXAMINATION: amputatinos; RIGHT HAND SERIES, COMPLETE: 12/08/2016.; ; Clinical history: Trauma, stuck hand in snowblower. Attention third and fourth; digits.; ; Four views are provided. There are open fracture amputations of the distal most; aspect of the distal jacquie of the third and fourth digits with laceration; avulsion of the soft tissues as well. These should be considered open fractures; likely bone is exposed to your direct visualization. I do not see other; fractures of the phalanges. The IP joints show narrowing consistent with; degenerative change as does the MCP joint of each digit. First CMC joint; degenerative changes are seen. No metacarpal carpal fracture or distal; radial/ulnar fracture.; ; Impression:; ; 1. Evidence for acute open fracture avulsions of the distal jacquie and soft; tissues of the distal phalanges third and fourth digits. Diffuse degenerative; changes throughout the joints of the hand and wrist. No other fractures. These; should be considered open fractures.; ; ; Signed by; Robb Foss MD 12/09/2016 09:19 A; Outcome: 18:39 Discharge ordered by Provider. 19:00 Discharge Assessment: Patient awake and alert. obeys commands, Oriented to person, ead place and time. patient administered narcotics - yes. Pt provided with safe discharge. The following High Risk Discharge criteria are identified: None. Discharged to home ambulatory, with friend. Condition: improved. Discharge instructions given to patient, Instructed on discharge instructions, follow up and referral plans. medication usage, no driving heavy equipment, wound care, no drinking with medication, Demonstrated understanding of instructions, medications, Pt was receptive of discharge instructions/ teaching. Prescriptions given X 2. No special radiology studies were completed. Property sent home with patient. 19:21 Patient left the ED. tm5 Signatures: Dispatcher [employer] EDMS Bola Nagel MD MD Skylar Meade, Giles Reg Carlee Marley Melissa mt4 Erin Thomas RN RN ead Crane, Kelsi, RN RN kc3 Gina Nicholson RN RN tm5 Ernestina carpio3 Corrections: (The following items were deleted from the chart) 18:14 18:00 General: shital isaacs Chart Complete MTDD
[2016-12-13] MEDS ORDERED: SILD20TA11 PO (11:35)
[2016-12-13] MEDS ORDERED: WARF4TAB51 PO (11:35)
[2016-12-13] MEDS ORDERED: LEVO25TA5 PO (11:35)
[2016-12-13] MEDS ORDERED: OMEP40CA2 PO (11:35)
[2016-12-13] MEDS ORDERED: DEPA500T2 PO (11:35)
[2016-12-13] MEDS ORDERED: ATOM40CA PO (11:35)
== END 2016-12-08 19:21 | disposition home or self-care (01) ==
LOC: M ED 17:09
DX: S62.664B Nondisplaced fracture of distal phalanx of right ring finger, initial encounter for open fracture (principal); S62.662B Nondisplaced fracture of distal phalanx of right middle finger, initial encounter for open fracture; S61.210A Laceration without foreign body of right index finger without damage to nail, initial encounter; S61.214A Laceration without foreign body of right ring finger without damage to nail, initial encounter; W31.89XA Contact with other specified machinery, initial encounter; Y92.89 Other specified places as the place of occurrence of the external cause; Y93.89 Activity, other specified; Y99.8 Other external cause status; E03.9 Hypothyroidism, unspecified; R56.9 Unspecified convulsions; F17.200 Nicotine dependence, unspecified, uncomplicated; Z87.820 Personal history of traumatic brain injury; Z86.718 Personal history of other venous thrombosis and embolism; Z90.89 Acquired absence of other organs; Z79.01 Long term (current) use of anticoagulants; Z79.899 Other long term (current) drug therapy
CPT/HCPCS: 36415; 73130; 80048; 85025; 85610; 85730; 90471; 90715; 96374; 96375; 96376; 99284; J0690; J2405

== ENCOUNTER → 2016-12-13 | Day surgery (SDC) | payer OTHER, MEDICARE ==
[~2016-12-13] VITALS: Ht 170.2 cm; Wt 79.8 kg
[~2016-12-13] MED LIST changes: +ATOM40CA PO; +HumuLIN R (REGULAR) INSULIN (NovoLIN R) **100U/ML** PER UNIT As Ordered ONE; +LEVO25TA5 PO; +LIDOCAINE 1% MDV 20ML VIAL As Ordered ONE; +LIDOCAINE 1% MDV 20ML VIAL XX ONE; +LIDOCAINE 2% INJ 100 MG/5 ML SYRINGE As Ordered ONE; +LR 1,000 ML IV SCH; +MIDAZOLAM INJ 2 MG/2 ML VIAL (J2250) As Ordered ONE; +MORPHINE 4 MG/ML 1ML SYRINGE IV PRN; +NORCO, ANEXSIA 5/325MG TABLET (HYDROcodone/ACETAMINOPHEN) As Ordered ONE; +NORCO, ANEXSIA 5/325MG TABLET (HYDROcodone/ACETAMINOPHEN) PO PRN; +OMEP40CA2 PO; +PROPOFOL 500 MG/50 ML VIAL As Ordered ONE; +SILD20TA11 PO; +WARF4TAB51 PO; +ceFAZolin 1GM INJ (J0690) As Ordered ONE; +ceFAZolin 1GM INJ (J0690) IR ONE; +ceFAZolin 2 GM/D5W 50 ML IV BAG (J0690) As Ordered ONE; +fentaNYL 100 MCG/2 ML INJECTION (J3010) As Ordered ONE
[2016-12-13 12:32] LABS: INR 2.04
--- NOTE | 2016-12-13 14:28 | IPN ---
DATE: 12/13/2016 The patient is seen and examined the preop area and he wishes to ahead with the revision amputation of his right third and fourth fingers. His bone is exposed and protrudes out a little bit from the wound. He does say he has been overdoing it with his hand and his bandage is relatively soiled and coated with dried blood. He wishes to go ahead with the procedure. He understands the nature of this. The risks of bleeding, infection, damage to nerves, vessels, persistent pain, stiffness, sensitivity, need for further surgery, among others. He understands I will have to shorten his fingers in order to get soft tissue coverage and he is okay with this.
[2016-12-13 15:00] VITALS: BP 121/69
--- NOTE | 2016-12-14 13:31 | RO ---
DATE OF PROCEDURE: 12/13/2016 PREOPERATIVE DIAGNOSIS: Right hand partial amputation of the tips of the third and fourth digits. POSTOPERATIVE DIAGNOSIS: Right hand partial amputation of the tips of the third and fourth digits. PROCEDURE: Completion and revision amputation of right third and fourth fingers with ablation of nail bed of the right fourth finger. SURGEON: Dr. Arsen Lara REPAIR SERVICE CLERK: ANESTHESIA: Local with sedation. ESTIMATED BLOOD LOSS: Minimal. COMPLICATIONS: None. INDICATIONS: 61-year-old gentleman who several days ago put his hand in a snowblower sustaining a partial amputation of the tips of his third and fourth fingers. There was some exposed bone and I recommended debriding the bone back to improve the odds that this would heal with adequate coverage. He wished to go ahead with this. He understood the nature of the procedure and the risks of bleeding, infection, damage to nerves, vessels, persistent pain, recurrent symptoms, need for further surgery, and possible issues with his nail growing. PROCEDURE: The patient taken to the operating room and placed in supine position after sedation was introduced. Under sterile conditions, I injected some 1% plain lidocaine at the proximal aspect of both digits to obtain a digital block. We prepped and draped the hand in the usual sterile fashion. A time-out had been performed previously. I then started with the third finger and dissected around the distal phalanx with a small dissecting scissor. I then used a rongeur to remove some of the bone. I did this back to the point where I could fold the palmar surface of the skin over the end of the finger and actually get a good coverage of the bone. I irrigated copiously and closed this loosely with some #4-0 nylon suture. The fourth finger was a little bit more complicated. I similarly dissected around the distal phalanx and used a rongeur to debride this back and shorten it. I did make cuts along either side of the nail bed as the nail bed still appeared to be intact on this digit, where as it did not appear to be intact on the third digit. I used a 15 blade to remove the nail matrix and then used a cautery to further ablate the nail bed. Once I was satisfied with the soft tissue coverage over the end of the finger and I on both fingers took a little corner of tissue off either side to try to reduce the "dog ears", this provided good coverage and there was no tension on the wound. I irrigated copiously and closed the skin with #4-0 nylon suture. Sterile dressing was applied. Tourniquet was deflated. There was really no excessive bleeding. He was taken to the recovery room in stable condition. There were no known complications. The plan will be routine postoperartive. Will bring him back in several days for a wound check and dressing change. We can probably downgrade the dressing which right now is including his four fingers excluding his thumb. He is going to continue his antibiotics. He says he is up-to-date on his tetanus and was given that in the emergency room several days ago.
== END | disposition home or self-care (01) ==
LOC: M SDC 10:35
PROVIDERS: ATTEND Orthopaedic Surgery
DX: S68.124A Partial traumatic metacarpophalangeal amputation of right ring finger, initial encounter (principal); S68.122A Partial traumatic metacarpophalangeal amputation of right middle finger, initial encounter; W31.89XA Contact with other specified machinery, initial encounter; Y92.89 Other specified places as the place of occurrence of the external cause; Y93.89 Activity, other specified; Y99.8 Other external cause status; E07.9 Disorder of thyroid, unspecified; K21.9 Gastro-esophageal reflux disease without esophagitis; F17.210 Nicotine dependence, cigarettes, uncomplicated; Z79.899 Other long term (current) drug therapy; Z79.01 Long term (current) use of anticoagulants; Z86.718 Personal history of other venous thrombosis and embolism
CPT/HCPCS: 11750; 26951; 36415; 85610; J0690; J2250; J3010

== ENCOUNTER → 2017-09-11 | Outpatient (CLI) | payer OTHER ==
[~2017-09-11] MED LIST changes: -HumuLIN R (REGULAR) INSULIN (NovoLIN R) **100U/ML** PER UNIT As Ordered ONE; -LIDOCAINE 1% MDV 20ML VIAL As Ordered ONE; -LIDOCAINE 1% MDV 20ML VIAL XX ONE; -LIDOCAINE 2% INJ 100 MG/5 ML SYRINGE As Ordered ONE; -LR 1,000 ML IV SCH; -MIDAZOLAM INJ 2 MG/2 ML VIAL (J2250) As Ordered ONE; -MORPHINE 4 MG/ML 1ML SYRINGE IV PRN; -NORCO, ANEXSIA 5/325MG TABLET (HYDROcodone/ACETAMINOPHEN) As Ordered ONE; -NORCO, ANEXSIA 5/325MG TABLET (HYDROcodone/ACETAMINOPHEN) PO PRN; -PROPOFOL 500 MG/50 ML VIAL As Ordered ONE; -ceFAZolin 1GM INJ (J0690) As Ordered ONE; -ceFAZolin 1GM INJ (J0690) IR ONE; -ceFAZolin 2 GM/D5W 50 ML IV BAG (J0690) As Ordered ONE; -fentaNYL 100 MCG/2 ML INJECTION (J3010) As Ordered ONE
--- NOTE | 2017-09-13 14:58 | RADONC ---
RADIATION ONCOLOGY CONSULTATION DATE: 09/11/2017 CHART NUMBER: [id number]. DIAGNOSIS Base of tongue cancer. STAGE: Stage IV A, [id number]. ECOG PERFORMANCE STATUS: 0. CONSULTATION NOTE: Mr. 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 HISTORY OF PRESENT ILLNESS: The patient was in his usual state of health but began having some discomfort at the tongue. He has lost 50 pounds over the last several months. He was seen at the [facility] and a biopsy was undertaken of the right base of tongue and right vallecula on 08/07/2017. Pathology revealed invasive poorly differentiated, non keratinizing squamous cell carcinoma with focal areas of surface ulceration. A PET scan was undertaken on August 14, 2017 and revealed hypermetabolic uptake in the tongue down to the larynx region. There was no evidence of hypermetabolic uptake in any lymph nodes. There was no evidence of metastatic disease. The patient had undertaken a dental consultation and had all of his teeth, which were questionable extracted. He reports that his remaining teeth have been cleared in good condition and able to withstand radiation. PAST MEDICAL HISTORY: The patient's past medical history is positive for a DVT blood clot and some type of psychiatric illness. He also reports hypothyroidism. ALLERGIES: The patient has NO KNOWN DRUG ALLERGIES. SOCIAL HISTORY: The patient has smoked half-a-pack of cigarettes per day for 18 years. He quit in 2007. He does not abuse alcohol. FAMILY HISTORY: The patient's family history is positive for mother with lung cancer and a sister with colon cancer. REVIEW OF SYSTEMS: The patient's review of systems is positive for 50 pound weight loss over the last 6 months. He reports decreased energy and anxiety. He denies any swollen glands in his neck. He has some difficulty swallowing because of discomfort. He denies nausea, vomiting, fevers, chills, night sweats, diplopia, headaches, chest pain, rectal bleeding, neurological problems or visual disturbances. PHYSICAL EXAMINATION: The patient is a well-developed, well-nourished white male in no acute distress. HEENT: Exam is normocephalic, atraumatic. Extraocular movements are intact. The patient's oral cavity is free of nodularity or ulceration. He has several extracted teeth. The remaining teeth look to be in good condition. He does have a lesion on the right base of tongue that appears to extend downward out of my field of vision. It appears also to involve the intrinsic muscles of the tongue. There is no palpable cervical, supraclavicular, infraclavicular or axillary lymphadenopathy present. His lungs are clear to auscultation and percussion. His heart has regular rate and rhythm. His abdomen is benign with no hepatosplenomegaly, masses or tenderness. Skeletal examination reveals no tenderness to pressure or percussion of the bony skeleton. IMAGING STUDIES I have personally reviewed the patient's CT scan done on August 14, 2017, which shows the hypermetabolic uptake in the patient's base of tongue down to his larynx. MEDICAL NECESSITY: IMRT/IGRT is clinically indicated for the highly conformal dose planning required. The target volume is in close proximity to critical structures, such as the normal brain, brainstem, eyes, optic nerves, spinal cord, parotid glands, and mandible. The volume of interest must be covered with narrow margins to adequately protect immediately adjacent structures. The plan requires interpretation of complex testing such as CT localization. As noted above, special planning (IMRT) and localizing (IGRT) is required and essential to maximally protect sensitive normal tissue structures which cannot be accomplished using conventional 3-dimensional planning. ASSESSMENT I believe the patient is a candidate for combination chemo radiation, I have so informed him. I have discussed with the patient in detail the potential benefits, as well as possible acute and chronic sequelae of external beam radiation therapy. We discussed logistics of treatment planning, simulation, subsequent fractionated daily radiation treatments. I did have a lengthy discussion about his teeth and he clearly insists that his teeth have been taken care of and the remaining ones have been declared to be in good condition. He is aware of the need for future dental care and the risks if he does not comply with such treatment. In addition, I had a very lengthy discussion about the possibility of a feeding tube. He has already lost 50 pounds and I explained him the acute and chronic sequelae of radiation therapy and the discomfort to worsen once treatment is started with swallowing. The patient wants absolutely nothing to do with a feeding tube at this point. I then recommended that he consider a surgical consultation so at least he is a patient of a local surgeon so that should he wish a PEG tube placed in the future, it could be done without unnecessary delay. He also refused that. We are setting up a consultation with our medical oncologist. Clearly radiation alone will not control this. He will need a combination of systemic therapy, as well as radiotherapy. Once he was seen by medical oncology, we will coordinate his care. I have scheduled the patient for simulation and initiation of treatment planning to plan IMRT treatment to his head and neck region. IMRT of course will allow us to more accurately define our target volumes and spare normal structures from prohibitive radiation doses. Thank you for allowing us to participate in the care of this gentleman. If I could be of any further assistance, please feel free to contact me anytime. As always, warm regards, Mathew Palomino MD cc: MD Geneva Carlton MD *[facility]
== END ==
LOC: M ONCR 09:43
PROVIDERS: ATTEND Radiology Radiation Oncology
DX: C01 Malignant neoplasm of base of tongue (principal)

== ENCOUNTER 2017-09-24 11:01 | Outpatient (RCR) | payer OTHER ==
--- NOTE | 2017-09-25 09:20 | RADONC ---
RADIATION ONCOLOGY SIMULATION NOTE DATE: 09/24/2017 Mr. Rodrigez was taken to the CT scan for CT simulation of his head and neck field. CT was accomplished without difficulty or discomfort. Radiation treatment planning is underway and radiation treatments will begin subsequently. An immobilization device was created without difficulty or discomfort. It included a mask. The immobilization device will be used throughout the course of treatment. I was physically present throughout the course of CT simulation.
== END 2017-09-25 ==
LOC: M ONCR 11:01
PROVIDERS: ATTEND Radiology Radiation Oncology
DX: C01 Malignant neoplasm of base of tongue (principal)

== ENCOUNTER → 2017-09-24 | Outpatient (CLI) | payer OTHER | LOC: M RAD 10:53 | PROVIDERS: ATTEND Radiology Radiation Oncology | DX: C01 Malignant neoplasm of base of tongue (principal) ==

== ENCOUNTER 2017-09-26 10:49 | Outpatient (RCR) | payer OTHER | END 2017-10-26 | LOC: M ONCR 10:49 | DX: Z51.89 Encounter for other specified aftercare (principal); C01 Malignant neoplasm of base of tongue | CPT/HCPCS: 77300 ==

== ENCOUNTER 2017-10-28 09:38 | Outpatient (RCR) | payer OTHER | END 2017-11-26 | LOC: M ONCR 09:38 | DX: C01 Malignant neoplasm of base of tongue (principal) | CPT/HCPCS: 77300 ==

== ENCOUNTER 2017-11-24 14:00 | Emergency (ER) | payer OTHER, MEDICARE ==
[2017-11-24] MEDS: LIDOCAINE VISCOUS 2% SOLN 15ML UDC SS (15:18)
[2017-11-24] MEDS: dexameTHASONE 4 MG/ML 1ML VIAL (J1100) PO (15:18)
== END 2017-11-24 15:51 | disposition home or self-care (01) ==
LOC: M ED 14:00
DX: R13.10 Dysphagia, unspecified (principal); J02.9 Acute pharyngitis, unspecified; C02.9 Malignant neoplasm of tongue, unspecified; F31.9 Bipolar disorder, unspecified; F41.9 Anxiety disorder, unspecified; F17.210 Nicotine dependence, cigarettes, uncomplicated; Z79.890 Hormone replacement therapy; Z79.899 Other long term (current) drug therapy; Z87.820 Personal history of traumatic brain injury; Z92.21 Personal history of antineoplastic chemotherapy; Z92.3 Personal history of irradiation
CPT/HCPCS: J1100

== ENCOUNTER 2017-11-27 09:34 | Outpatient (RCR) | payer OTHER | END 2017-12-24 | LOC: M ONCR 09:34 | DX: Z51.89 Encounter for other specified aftercare (principal); C01 Malignant neoplasm of base of tongue (principal) | CPT/HCPCS: 77336 ==

== ENCOUNTER → 2018-01-07 | Outpatient (CLI) | payer OTHER | LOC: M ONCR 13:13 | DX: C01 Malignant neoplasm of base of tongue (principal) | CPT/HCPCS: G0463 ==

== ENCOUNTER → 2018-04-16 | Outpatient (CLI) | payer OTHER | LOC: M ONCR 13:14 | DX: C01 Malignant neoplasm of base of tongue (principal) ==

== ENCOUNTER → 2018-05-26 | Outpatient (CLI) | payer OTHER | LOC: M PLARAD 09:57 | DX: C02.9 Malignant neoplasm of tongue, unspecified (principal) | CPT/HCPCS: 78815 ==

== ENCOUNTER → 2018-10-07 | Outpatient (CLI) | payer OTHER | LOC: M ONCR 12:09 | DX: C02.9 Malignant neoplasm of tongue, unspecified (principal) | CPT/HCPCS: G0463 ==

== ENCOUNTER → 2019-03-03 | Outpatient (CLI) | payer OTHER ==
[~2019-03-03] MED LIST changes: +DOCU100C27 PO; +HYDR-3713 PO; +MAGICMW SS; +POTA10808 PO; +PRAV1TAB39 PO
--- NOTE | 2019-03-04 10:44 | RADONC ---
RADIATION ONCOLOGY FOLLOWUP NOTE DATE OF SERVICE: 03/03/2019 CHART NUMBER: [id number]. DIAGNOSIS: Base of tongue cancer. STAGE: DAVID, [id number]. ECOG PERFORMANCE STATUS: Zero. FOLLOWUP NOTE: Mr. Rodrigez is a very pleasant 63-year-old white male with the diagnosis of a stage DAVID, [id number] invasive poorly differentiated nonkeratinizing squamous cell carcinoma of base of tongue, who is presenting to us today for routine followup visit 1 year and 3 months postcompletion of external beam radiation therapy. The patient presents today reporting that generally he is doing quite well with no complaints at this time related to his radiation therapy other than some slight taste changes. He is having no pain upon swallowing or sore throat. He has no xerostomia. REVIEW OF SYSTEMS: The patient's review of systems is positive for some changes in his taste sensation but is otherwise noncontributory. He denies nausea, vomiting, fevers, chills, night sweats, diplopia, headaches, anxiety or depression, anorexia, weight loss, visual disturbances, chest pain, urinary or bowel difficulties, bone pain, or neurological problems. PHYSICAL EXAMINATION: The patient is a well-developed, well-nourished white male in no acute distress. His weight today is 139.6 pounds, which is actually up 2-1/2 pounds since his visit in September. HEENT examination: Is normocephalic, atraumatic. Extraocular movements are intact. Oral cavity examination: Reveals no evidence of nodularity, ulceration, or residual disease. There are no new lesions seen. There is no palpable cervical, supraclavicular, infraclavicular, or axillary lymphadenopathy present. His lungs are clear to auscultation and percussion. His heart has a regular rate and rhythm. ASSESSMENT: The patient is clinically SAIDA at this time. He is being seen by his head and neck surgeon, who is doing laryngoscopic fiberoptic evaluation every 2 months. In light of this, I have discharged him except on a p.r.n. basis. cc: MD Ana Maria Carlton MD [facility]
== END ==
LOC: M ONCR 13:16
PROVIDERS: ATTEND Radiology Radiation Oncology
DX: Z85.810 Personal history of malignant neoplasm of tongue (principal); Z92.3 Personal history of irradiation

== ENCOUNTER → 2020-03-22 | Outpatient (REF) | payer OTHER ==
[~2020-03-22] MED LIST changes: -ATOM40CA PO; +ATOM40CA16 PO; -OMEP40CA2 PO; +OMEP40CA97 PO
[2020-03-22 17:12] LABS: APPEARANCE, URINE CLEAR (CLEAR); BACTERIA, URINE AUTO NEGATIVE (NEGATIVE); BILIRUBIN, URINE AUTO NEGATIVE (NEGATIVE); BLOOD, URINE BLOOD NEGATIVE (NEGATIVE); COLOR, URINE YELLOW (YELLOW); GLUCOSE, URINE (UA) AUTO NEGATIVE (NEGATIVE); KETONE, URINE AUTO TRACE mg/dL (NEGATIVE); LEUKOCYTE ESTERASE, URINE AUTO NEGATIVE (NEGATIVE); NITRITE, URINE AUTO NEGATIVE (NEGATIVE); PROTEIN, URINE AUTO NEGATIVE (NEGATIVE); RBC, URINE AUTO 0 /HPF (0-3); SPECIFIC GRAVITY URINE AUTO 1.019 (1.002-1.035); SQUAMOUS EPITHELIAL CELL UR AU 0 /HPF (0-6); UROBILINOGEN, URINE AUTO 0.2 mg/dL (0.0-2.0); WBC, URINE AUTO 0 /HPF (0-3)
== END ==
LOC: M SMT 16:26
PROVIDERS: ATTEND Nurse Practitioner Women's Health
DX: N40.0 Benign prostatic hyperplasia without lower urinary tract symptoms (principal)
CPT/HCPCS: 51798; 81001; 87086; G0463

== ENCOUNTER → 2020-04-03 | Outpatient (CLI) | payer OTHER ==
[2020-04-03 14:45] LABS: HEMATOCRIT 32.3 % (42.0-52.0); HEMOGLOBIN 9.8 g/dl (13.5-17.5); MEAN CORPUSCULAR HEMOGLOBIN 23.2 pg (27.0-33.0); MEAN CORPUSCULAR HGB CONC 30.3 g/dl (32.0-36.5); MEAN CORPUSCULAR VOLUME 76.4 fl (80.0-96.0); PLATELET COUNT, AUTOMATED 259 10^3/uL (150-450); RED BLOOD COUNT 4.23 10^6/uL (4.30-6.10); WHITE BLOOD COUNT 5.2 10^3/uL (4.0-10.0)
[2020-04-03 15:03] LABS: ERYTHROCYTE SEDIMENTATION RATE 24 mm/hr (0-20)
[2020-04-03 15:08] LABS: HEMOGLOBIN A1c 5.4 %
[2020-04-03 15:19] LABS: ALBUMIN 3.6 GM/DL (3.2-5.2); ALT/SGPT 18 U/L (12-78); BILIRUBIN,TOTAL 0.3 MG/DL (0.2-1.0); BLOOD UREA NITROGEN 21 MG/DL (7-18); C REACTIVE PROTEIN QUANTITATIV < 0.30 MG/DL (0.00-0.30); CARBON DIOXIDE LEVEL 27 MEQ/L (21-32); CHLORIDE LEVEL 109 MEQ/L (98-107); CREATININE FOR GFR 1.09 MG/DL (0.70-1.30); GLOMERULAR FILTRATION RATE > 60.0 (>49); GLUCOSE, FASTING 81 MG/DL (70-100); POTASSIUM SERUM 4.2 MEQ/L (3.5-5.1); SODIUM LEVEL 141 MEQ/L (136-145); TOTAL PROTEIN 7.1 GM/DL (6.4-8.2)
--- NOTE | 2020-04-04 02:29 | REP ---
Clinical: systemic inflammatory process . Comparison: None . Technique: PA and lateral. Findings: The mediastinum and cardiac silhouette are normal. The lung feng are clear and without acute consolidation, effusion, or pneumothorax. The skeletal structures are intact and normal. Impression: 1. No acute cardiopulmonary process. Electronically Signed by Jose Foreman MD 04/04/2020 02:20 A
== END ==
LOC: M LAB 13:35
PROVIDERS: ATTEND Surgery
DX: M27.2 Inflammatory conditions of jaws (principal)

== ENCOUNTER → 2020-09-23 | Outpatient (CLI) | payer OTHER ==
[~2020-09-23] MED LIST changes: +FERR325T3 PO; +MULTCAP PO; +MYRB25TA PO
== END ==
LOC: M LABSMTC 09:57
PROVIDERS: ATTEND Anesthesiology
DX: Z01.812 Encounter for preprocedural laboratory examination (principal); Z20.828 Contact with and (suspected) exposure to other viral communicable diseases

== ENCOUNTER 2020-09-27 07:32 | Day surgery (SDC) | payer OTHER ==
[~2020-09-27] VITALS: Ht 162.6 cm; Wt 73.9 kg
[~2020-09-27 07:32] MED LIST changes: +NS 1,000 ML IV ONE
[2020-09-27] MEDS ORDERED: LIDOCAINE 2% 100MG/5ML SDV (FOR ANES.) As Ordered ONE (08:25)
[2020-09-27] MEDS ORDERED: propofoL 200 MG/20 ML VIAL As Ordered ONE (08:25)
[2020-09-27] MEDS ORDERED: fentaNYL 100 MCG/2 ML INJECTION (J3010) As Ordered ONE (08:27)
[2020-09-27] MEDS ORDERED: ePHEDrine SULFATE 25 MG/5 ML(5MG/ML) SYRINGE As Ordered ONE (09:41)
--- NOTE | 2020-09-27 10:01 | ROOR ---
Patient Name: Cipriano Rodrigez Procedure Date: 09/27/2020 9:21 AM Date of : 1955 Age: 65 Room: [facility] Gender: Male Note Status: Finalized Procedure: Upper GI endoscopy Indications: Esophageal reflux, Follow-up of Bae's esophagus Providers: Ermias Monk MD Referring MD: Fabrice Go MD Requesting Provider: Medicines: Monitored Anesthesia Care Complications: No immediate complications. Procedure: Pre-Anesthesia Assessment: - Prior to the procedure, a History and Physical was performed, and patient medications and allergies were reviewed. The patient is competent. The risks and benefits of the procedure and the sedation options and risks were discussed with the patient. All questions were answered and informed consent was obtained. Patient identification and proposed procedure were verified by the physician, the nurse and the abseiling instructor in the endoscopy suite. Mental Status Examination: alert and oriented. Airway Examination: normal oropharyngeal airway and neck mobility. Respiratory Examination: clear to auscultation. CV Examination: normal. Prophylactic Antibiotics: The patient does not require prophylactic antibiotics. Prior Anticoagulants: The patient has taken Coumadin (warfarin), last dose was 5 days prior to procedure. ASA Grade Assessment: IV - A patient with severe systemic disease that is a constant threat to life. After reviewing the risks and benefits, the patient was deemed in satisfactory condition to undergo the procedure. The anesthesia plan was to use monitored anesthesia care (MAC). Immediately prior to administration of medications, the patient was re-assessed for adequacy to receive sedatives. The heart rate, respiratory rate, oxygen saturations, blood pressure, adequacy of pulmonary ventilation, and response to care were monitored throughout the procedure. The physical status of the patient was re-assessed after the procedure. The Endoscope was introduced through the mouth, and advanced to the second part of duodenum. The upper GI endoscopy was accomplished without difficulty. The patient tolerated the procedure well. Findings: The examined esophagus was normal. The esophagus and gastroesophageal junction were examined with white light and narrow band imaging (NBI). There was no visual evidence of Bae's esophagus. The entire examined stomach was normal. The duodenal bulb, first portion of the duodenum and second portion of the duodenum were normal. Impression: - Normal esophagus. - There is no endoscopic evidence of Bae's esophagus. - Normal stomach. - Normal duodenal bulb, first portion of the duodenum and second portion of the duodenum. - No specimens collected. Recommendation: - Discharge patient to home (ambulatory). - Continue present medications. Procedure Code(s): --- Professional --- 92976, Esophagogastroduodenoscopy, flexible, transoral; diagnostic, including collection of specimen(s) by brushing or washing, when performed (separate procedure) Diagnosis Code(s): --- Professional --- K22.70, Bae's esophagus without dysplasia K21.9, Gastro-esophageal reflux disease without esophagitis CPT copyright 2019 [employer]. All rights reserved. The codes documented in this report are preliminary and upon multiple needle stitcher review may be revised to meet current compliance requirements. Ermias Monk MD Ermias Monk MD 09/27/2020 10:01:01 AM Electronically signed by Ermias Monk MD Number of Addenda: 0 Note Initiated On: 09/27/2020 9:21 AM Estimated Blood Loss: Estimated blood loss: none.
--- NOTE | 2020-09-27 10:05 | ROOR ---
Patient Name: Cipriano Rodrigez Procedure Date: 09/27/2020 9:22 AM Date of : 1955 Age: 65 Room: [facility] Gender: Male Note Status: Finalized Procedure: Colonoscopy Indications: High risk colon cancer surveillance: Personal history of colonic polyps Providers: Ermias Monk MD Referring MD: Fabrice Go MD Requesting Provider: Medicines: Monitored Anesthesia Care Complications: No immediate complications. Procedure: Pre-Anesthesia Assessment: - Prior to the procedure, a History and Physical was performed, and patient medications and allergies were reviewed. The patient is competent. The risks and benefits of the procedure and the sedation options and risks were discussed with the patient. All questions were answered and informed consent was obtained. Patient identification and proposed procedure were verified by the physician, the nurse and the asbestos pipe supervisor in the endoscopy suite. Mental Status Examination: alert and oriented. Airway Examination: normal oropharyngeal airway and neck mobility. Respiratory Examination: clear to auscultation. CV Examination: normal. Prophylactic Antibiotics: The patient does not require prophylactic antibiotics. Prior Anticoagulants: The patient has taken Coumadin (warfarin), last dose was 5 days prior to procedure. ASA Grade Assessment: III - A patient with severe systemic disease. After reviewing the risks and benefits, the patient was deemed in satisfactory condition to undergo the procedure. The anesthesia plan was to use monitored anesthesia care (MAC). Immediately prior to administration of medications, the patient was re-assessed for adequacy to receive sedatives. The heart rate, respiratory rate, oxygen saturations, blood pressure, adequacy of pulmonary ventilation, and response to care were monitored throughout the procedure. The physical status of the patient was re-assessed after the procedure. The Colonoscope was introduced through the anus and advanced to the cecum, identified by appendiceal orifice and ileocecal valve. The colonoscopy was somewhat difficult due to a tortuous colon. The patient tolerated the procedure well. The quality of the bowel preparation was adequate to identify polyps and fair, right side of colon with solid stools that needed lavage to break apart Findings: Hemorrhoids were found on perianal exam. A few small-mouthed diverticula were found in the sigmoid colon. The colon (entire examined portion) appeared normal. No additional abnormalities were found on retroflexion. Impression: - Preparation of the colon was fair. - Hemorrhoids found on perianal exam. - Diverticulosis in the sigmoid colon. - The entire examined colon is normal. - No specimens collected. Recommendation: - Discharge patient to home (ambulatory). - Resume Coumadin (warfarin) at prior dose today. Refer to managing physician for further adjustment of therapy. - Repeat colonoscopy in 5 years for surveillance. Procedure Code(s): --- Professional --- 78642, Colonoscopy, flexible; diagnostic, including collection of specimen(s) by brushing or washing, when performed (separate procedure) Diagnosis Code(s): --- Professional --- Z86.010, Personal history of colonic polyps K64.9, Unspecified hemorrhoids K57.30, Diverticulosis of large intestine without perforation or abscess without bleeding CPT copyright 2019 [employer]. All rights reserved. The codes documented in this report are preliminary and upon back feeder plywood layup line review may be revised to meet current compliance requirements. Ermias Monk MD Ermias Monk MD 09/27/2020 10:04:46 AM Electronically signed by Ermias Monk MD Number of Addenda: 0 Note Initiated On: 09/27/2020 9:22 AM Estimated Blood Loss: Estimated blood loss: none.
[2020-09-27 10:30] VITALS: BP 106/56
== END 2020-09-27 14:09 | disposition home or self-care (01) ==
LOC: M OPP 07:32
PROVIDERS: ATTEND Surgery
DX: Z86.010 Personal history of colon polyps (principal); Z09 Encounter for follow-up examination after completed treatment for conditions other than malignant neoplasm; K64.8 Other hemorrhoids; K57.30 Diverticulosis of large intestine without perforation or abscess without bleeding; K22.70 Barrett's esophagus without dysplasia; K21.9 Gastro-esophageal reflux disease without esophagitis; F17.210 Nicotine dependence, cigarettes, uncomplicated; E03.9 Hypothyroidism, unspecified; Z79.01 Long term (current) use of anticoagulants; Z79.891 Long term (current) use of opiate analgesic; Z79.899 Other long term (current) drug therapy
CPT/HCPCS: 43235; 45378; J3010

== ENCOUNTER 2021-03-03 07:35 | Day surgery (SDC) | payer OTHER ==
[~2021-03-03] VITALS: Ht 167.6 cm; Wt 72.3 kg
[~2021-03-03 07:35] MED LIST changes: -NS 1,000 ML IV ONE; +OMEP40CA4 PO; -OMEP40CA97 PO
[2021-03-03] MEDS ORDERED: ONDANSETRON 4MG/2ML VIAL IV ONE (08:10)
[2021-03-03] MEDS ORDERED: MORPHINE 2 MG/ML 1ML VIAL (J2270) IV ONE (08:10)
[2021-03-03] MEDS ORDERED: LORazepam 2 MG/ML VIAL IV ONE (08:10)
[2021-03-03] MEDS ORDERED: HYDR-3713 PO (08:17)
[2021-03-03 08:37] LABS: BASO % 0.2 % (0.0-1.0); EOS # 0.1 10^3/uL (0.0-0.5); EOS % 0.9 % (0.0-3.0); HEMATOCRIT 41.7 % (42.0-52.0); HEMOGLOBIN 13.8 g/dl (13.5-17.5); LYMPH # 0.8 10^3/uL (1.5-5.0); LYMPH % 14.7 % (24.0-44.0); MEAN CORPUSCULAR HEMOGLOBIN 31.2 pg (27.0-33.0); MEAN CORPUSCULAR HGB CONC 33.1 g/dl (32.0-36.5); MEAN CORPUSCULAR VOLUME 94.1 fl (80.0-96.0); MONO # 0.7 10^3/uL (0.0-0.8); MONO % 11.8 % (2.0-8.0); NEUTROPHILS # 4.1 10^3/uL (1.5-8.5); NEUTROPHILS % 72.2 % (36.0-66.0); PLATELET COUNT, AUTOMATED 199 10^3/uL (150-450); RED BLOOD COUNT 4.43 10^6/uL (4.30-6.10); WHITE BLOOD COUNT 5.7 10^3/uL (4.0-10.0)
[2021-03-03 09:35] LABS: INR 1.44; PROTHROMBIN TIME 17.9 SECONDS (12.5-14.3)
[2021-03-03] MEDS ORDERED: THERTAB21 PO (11:11)
[2021-03-03] MEDS ORDERED: DIVA500T9 PO (11:11)
[2021-03-03] MEDS ORDERED: OMEP1CAP73 PO (11:11)
[2021-03-03] MEDS ORDERED: SYNT50TA PO (11:11)
[2021-03-03] MEDS ORDERED: WARF4TAB51 PO (11:11)
[2021-03-03] MEDS ORDERED: FLOM0.4C39 PO (11:11)
[2021-03-03] MEDS ORDERED: POTA10TA16 PO (11:11)
[2021-03-03] MEDS ORDERED: FERR324T2 PO (11:11)
[2021-03-03] MEDS ORDERED: PRAV80TA2 PO (11:11)
[2021-03-03] MEDS ORDERED: ATOM100C PO (11:11)
[2021-03-03] MEDS ORDERED: SENN1TAB94 PO (11:11)
[2021-03-03 11:30] LABS: RSV AMPLIFICATION NEGATIVE (NEGATIVE)
--- NOTE | 2021-03-03 11:34 | REP ---
INDICATION: hernia pain. COMPARISON: None. Upper abdominal images obtained during CT of the chest 09/07/2022 have been reviewed TECHNIQUE: Noncontrast hands limited helical CT FINDINGS: There is no change in appearance of the lung bases compared to the prior chest CT. There is a large and in fact huge hiatal hernia. Limited evaluation of the solid intra-organs and gallbladder show no gross abnormalities. Limited evaluation of the pancreas and adrenal glands show no gross abnormalities. Limited evaluation of the left kidney show no gross abnormalities. Seen arising from the interpolar region of the right kidney there is a round 1.8 cm sized low-density structure which has slightly higher than water density Hounsfield unit readings. This area was not imaged on the prior chest CT. Limited evaluation of the abdominal aorta and para-regions show no gross abnormalities. There is no evidence of intestinal obstruction. There is no evidence of free fluid or free air. There is a left inguinal hernia in which large bowel resides. In the left hemipelvis there is a 4.3 x 3.8 x 3.3 cm sized mixed density mass which is either abutting or arising from the sigmoid colon. This may in fact be secondary to a large sigmoid colon diverticulum. Bone window technique throughout the examination shows chronic lumbar spine changes. There is a grade 1 L4 upon L5 spondylolisthesis. IMPRESSION: 1. Hernias as described above. 2. Right renal cyst as described above. 3. Findings involving the sigmoid colon as described above. 4. Other findings and exam limitations as described above. <Electronically signed by Yakov Castrejon > 03/03/21 [id number]
--- NOTE | 2021-03-03 13:32 | ECGEPIP ---
[facility] - ED Test Date: 2021-03-03 Pat Name: DANA MCLAIN Department: Room: - Gender: Male Interchange Agent: TC : 1955 Requested By: Victor Hugo Mcclellan Order Number: [id number] Reading MD: Victor Hugo Rangel Measurements Intervals [place] Rate: 75 P: 65 NH: 166 QRS: 57 QRSD: 92 T: 51 QT: 402 QTc: 448 Interpretive Statements Sinus rhythm with marked sinus arrhythmia with premature atrial complexes NO PRIORS FOR COMPARISON Electronically Signed on 03-03-2021 13:32:25 EDT by Victor Hugo Rangel
[2021-03-03] MEDS ORDERED: LR 1,000 ML IV SCH ×2 (14:30→22:05)
[2021-03-03] MEDS ORDERED: AMPICILLIN SOD/SULBACTAM SOD 3 GM in D5W MINI-BAG PLUS 100 ML IV SCH (15:00)
[2021-03-03] MEDS ORDERED: MORPHINE 4 MG/ML 1ML VIAL/SYRINGE (J2270) IV PRN (15:25)
[2021-03-03] MEDS ORDERED: fentaNYL 250 MCG/5 ML INJECTION (J3010) As Ordered ONE (15:27)
[2021-03-03] MEDS ORDERED: LIDOCAINE 2% 100MG/5ML SDV (FOR ANES.) As Ordered ONE (15:28)
[2021-03-03] MEDS ORDERED: dexameTHASONE 4 MG/ML 1ML VIAL (J1100 PER 1MG) As Ordered ONE (15:28)
[2021-03-03] MEDS ORDERED: MIDAZOLAM INJ 2MG/2ML VIAL (J2250 PER 1MG) As Ordered ONE (15:28)
[2021-03-03] MEDS ORDERED: ROCURONIUM BROMIDE 50 MG/5 ML VIAL As Ordered ONE (15:28)
[2021-03-03] MEDS ORDERED: ONDANSETRON 4MG/2ML VIAL As Ordered ONE (15:28)
[2021-03-03] MEDS ORDERED: propofoL 200 MG/20 ML VIAL As Ordered ONE (15:28)
[2021-03-03] MEDS ORDERED: LIDOCAINE 1% SDV 30ML VIAL As Ordered ONE (19:07)
[2021-03-03] MEDS ORDERED: BUPIVACAINE HCL 0.25% 30ML VIAL As Ordered ONE (19:07)
[2021-03-03] MEDS ORDERED: UNASYN 3 GM VIAL As Ordered ONE (19:44)
[2021-03-03] MEDS ORDERED: ePHEDrine SULFATE 25 MG/5 ML(5MG/ML) SYRINGE As Ordered ONE (19:48)
[2021-03-03] MEDS ORDERED: ACETAMINOPHEN 1000MG 100ML IV BTL (OFIRMEV) (J0131 PER 10MG) As Ordered ONE (20:03)
[2021-03-03] MEDS ORDERED: SUGAMMADEX SODIUM 500 MG/5 ML VIAL (BRIDION) As Ordered ONE (20:03)
[2021-03-03] MEDS ORDERED: KETOROLAC 60MG 2ML VIAL As Ordered ONE (20:04)
[2021-03-03] MEDS ORDERED: LABETALOL 100MG/20ML VIAL As Ordered ONE (20:48)
[2021-03-03] MEDS ORDERED: DIVALPROEX 500MG *ER* TAB PO SCH (21:00)
[2021-03-03] MEDS ORDERED: PRAVASTATIN 20 MG TAB PO SCH (21:00)
[2021-03-03] MEDS ORDERED: NORCO, ANEXSIA 5/325MG TABLET (HYDROcodone/ACETAMINOPHEN) PO PRN (21:55)
[2021-03-03] MEDS ORDERED: KETOROLAC 30 MG/ML 1ML VIAL IV PRN (21:55)
[2021-03-03] MEDS ORDERED: ONDANSETRON 4MG/2ML VIAL IV PRN (22:05)
[2021-03-03] MEDS ORDERED: fentaNYL 100 MCG/2 ML INJECTION (J3010) IV PRN (22:05)
[2021-03-03] MEDS ORDERED: oxyCODONE 5MG TAB PO PRN (22:05)
[2021-03-03] MEDS ORDERED: METOCLOPRAMIDE INJ 10MG/2ML VIAL (J2765 PER 1) IV PRN (22:05)
[2021-03-03 22:51] VITALS: BP 114/86
[2021-03-03 23:06] VITALS: BP 106/86
[2021-03-03] MEDS: POTASSIUM CHLORIDE 10 MEQ SR TABLET PO SCH (23:19)
[2021-03-03] MEDS: OMEPRAZOLE 20 MG CAP PO SCH (23:19)
[2021-03-03] MEDS: SENOKOT S TAB PO SCH (23:19)
[2021-03-04 00:01] VITALS: BP 130/58
[2021-03-04 00:48] VITALS: BP 119/66
[2021-03-04 05:57] VITALS: BP 121/77
[2021-03-04] MEDS ORDERED: LEVOTHYROXINE 50MCG TABLET (0.05MG) PO SCH (06:00)
[2021-03-04] MEDS: POTASSIUM CHLORIDE 10 MEQ SR TABLET PO SCH ×2 (09:00→09:56)
[2021-03-04] MEDS: TAMSULOSIN 0.4 MG CAP PO SCH ×2 (09:00→09:56)
[2021-03-04] MEDS: SENOKOT S TAB PO SCH ×2 (09:00→09:57)
[2021-03-04] MEDS: OMEPRAZOLE 20 MG CAP PO SCH ×2 (09:00→09:56)
--- NOTE | 2021-03-21 05:44 | ROOPDOC ---
[facility] Report Of Operation Report of Operation DATE OF PROCEDURE: 03/03/21 PREPROCEDURE DIAGNOSES: Incarcerated Inguinal Hernia. POSTPROCEDURE DIAGNOSES: Incarcerated inguinal hernia. PROCEDURE: Robotic assisted Laparoscopic Repair of left inguinal hernia, reduction of incarcerated sigmoid colon SURGEON: Ermias Bates MD [employer] ARCHITECT: ANESTHESIA: General Endotracheal Anesthesia. ESTIMATED BLOOD LOSS: Approximately 10 mL. COMPLICATIONS: none. REMARKS: 65 M with no reducible left inguinal scrotal hernia was actually scheduled to undergo repair by me in a couple weeks. He presented to the ED with a nonreducible acutely incarcerated left inguinal hernia. Imaging shows this is containing sigmoid colon. PROCEDURE NOTE: Incarcerated sigmoid colon. This was fully reduced. No evidence of ischemia, strangulation perforation.. DESCRIPTION OF PROCEDURE: Patient received 500 mg Unasyn IV preoperatively for wound prophylaxis/possible bowel involvement. Patient was brought to the operating room, placed supine on the operating table. Compression boots placed in both lower extremities for DVT prophylaxis. After adequate general anesthesia started, he was positioned on the table with both arms tucked. A french catheter placed without difficulty. His abdomen and groin/pelvic area then prepped and draped in the usual sterile fashion. We paused for a surgical timeout using both pre-incision safety checklist to verify correct patient, procedure site and additional clinical information prior to beginning the procedure Entry to the abdomen done through a small incision about 4 cms above the umbilical skin cleft. A Veress needle is inserted on a controlled fashion. CO2 insufflation started to pressure 15 mmHg. Using the same incision a 8 mm robotic troccar then placed under direct vision of laparoscope. The insertion site was inspected for injury and none was found. Patient was then positioned on a mild Trendelenburg position. Three working ports placed to the right and left of the camera trocar along the same line 10 -12 cms apart. The da Deana robot tower was then positioned in place and the trocars docked to the robotic arms. I then unscrubbed and took control of the camera and the laparoscopic instruments at the surgeon's console. A Forced bipolar forceps with bipolar cautery and A laparoscopic scissor with unipolar cautery was used. Operative Findings: Sigmoid colon is noted to be incarcerated. Initially not easily reducible. After starting the peritoneal flap, I was able to reduct the sigmoid colon and this is oted to have no perforation or ischemia. Previous plug repair of the right inguinal hernia The peritoneum was opened up about 7 cms above the superior edge of the fascial defect of the inguinal hernia starting at the medial umbilical ligament (divided) going in an arc-like fashion laterally towards the level of the anterior superior iliac spine. This was then dissected mostly bluntly away from the abdominal wall. After starting the flap, I again tried to reduce the incarcerated sigmoid colon and was successful this time around. Evaluation of the colon joe show this is intact, healthy without perforation or ischemic effect. Both the lateral side and medial side were bluntly opened up. Medially this was extended to past the symphisis pubis and 2 cms inferior to the pubic tubercle . A small fat-containing inguinal hernia was noted. The fat within the canal was reduced into the preperitoneum and dissection was extended inferiorly to the femoral space. Laterally this was extended in the same plane and along the same depth as the space of Bogros. On approaching the inguinal hernia defect the hernia sac was completely dissected off the testicular structures with concommitant reduction of a bulky cord lipoma. The testicular vessels and vas deferens remained largely in placed with their investing fascia mostly intact with minimal manipulation of the cord structures. He has a large and redundant inguinal hernia sac which was fully reduced back into the abdomen. Both these structures were promptly identified and from the hernia sac. A After freeing up the hernia sac, the bridging fibrous structures off the medial space of retzius and lateral space of bogros were connected with parietalization of the vas deferens. I tested the flap to make sure there is adequate space for placement of mesh without lifting or clam shelling of the mesh. After fully dissecting the preperitoneal space, we checked for adequate hemostasis. I chose a 17x12 cms Parietex [employer] self fixating mesh. This was folded with the center of the mesh marked for positioning. This was then delivered intra- abdominally through one of the trochars. In a controlled fashion this was positioned into the preperitoneal space with the medial side towards the pubic tubercle past the symphisis pubis and the previously marked center of the mesh abutting the inferior epigastric vessels as it approaches the internal ring. The mesh was then carefully unfolded and positioned in place with adequate overlap around the internal ring to cover the hernia defects including that of the identified small right femoral hernia. This was carefully pressed onto the ab dominal wall and made sure that it was flattened up. No added fixations were used. I again tested closing the flap making sure that the mesh remains intact without movement or clam shelling. The peritoneal flap was then closed with a running suture of 30V LOC starting laterally going medially with tacking of the extra hernia sac towards the umbilical ligament. I I then surveyed the abdomen and pelvis for any signs of injury. Once satisfied I scrubbed back in. The instruments were removed. The abdomen was deflated. All ports were removed. The skin incisions were closed with 4-0 Monocryl in subcuticular fashion. The incisions were covered with Dermabond. The port sites were again infiltrated with local anesthesia. An ilioinguinal nerve block was also performed. ERMIAS JOYCE MD March 21, 2021 05:44
== END 2021-03-04 11:10 | disposition left against medical advice (07) ==
LOC: M ED 07:35 → M SDC 12:43 → M MS5PR 22:40 → M SDC 03-04 11:10
PROVIDERS: ATTEND Surgery
DX: K40.31 Unilateral inguinal hernia, with obstruction, without gangrene, recurrent (principal); D17.6 Benign lipomatous neoplasm of spermatic cord; E78.5 Hyperlipidemia, unspecified; K22.70 Barrett's esophagus without dysplasia; E07.9 Disorder of thyroid, unspecified; F32.9 Major depressive disorder, single episode, unspecified; F41.9 Anxiety disorder, unspecified; Z85.21 Personal history of malignant neoplasm of larynx; Z86.718 Personal history of other venous thrombosis and embolism; Z87.820 Personal history of traumatic brain injury; F17.210 Nicotine dependence, cigarettes, uncomplicated; Z79.899 Other long term (current) drug therapy; Z79.01 Long term (current) use of anticoagulants
CPT/HCPCS: 49651; 80047; 83605; 85025; 85610; 87631; 88304; 93005; 93041; 94760; 96365; 96366; 96375; 96376; 99285; C1781; J0131; J1100; J1885; J2060; J2250; J2270; J2405; J3010; S2900